=== PATIENT | male | born 1955 | race Caucasian/White ===

== ENCOUNTER 2020-09-22 09:38 | Emergency (ER) | payer BC ==
[~2020-09-22] VITALS: Ht 170.2 cm; Wt 79.3 kg
--- NOTE | 2020-09-22 10:09 | NUR ---
PT BIB POV. PER PT HE WAS COVID+ 09/12, WITH WORSENING COUGH, POOR APPETITE, AND SOB. PT AFEBRILE AND 91% O2 SAT ON RA. PT RESTING IN GURNEY, ON CARDIAC MONITORING & CONT PULSE OX, NAD NOTED, WILL CONTINUE TO MONITOR.
[2020-09-22] MEDS ORDERED: SODIUM CHLORIDE FLUSH 10ML SYR IVF ONE (10:30)
--- NOTE | 2020-09-22 10:41 | NUR ---
PT AMBULATED DOWN HALLWAY, PT'S PULSE OX AFTER EXERTION WAS 94% ON RA. PT OCCASIONALLY DESATING TO 88% WHILE RESTING IN [facility]. AWARE. PT ON CONTINUOUS PULSE OX, WILL CONTINUE TO MONITOR.
[2020-09-22 10:49] LABS: BASOPHILS % (AUTO) 0 % (0-1); EOSINOPHILS % (AUTO) 0 % (1-7); LYMPHOCYTES % (AUTO) 9 % (22-44); MEAN CORPUSCULAR HEMOGLOBIN 30.8 pg (27.5-34.5); MEAN CORPUSCULAR HGB CONC 33.9 g/dL (33.2-36.2); MEAN PLATELET VOLUME 8.4 fL (7.4-10.4); MONOCYTES % (AUTO) 6 % (2-9); NEUTROPHILS % (AUTO) 84 % (42-75); PLATELET COUNT 251 x10^3/uL (130-400); RED BLOOD COUNT 4.42 x10^6/uL (4.38-5.82); RED CELL DISTRIBUTION WIDTH 13.4 % (9.4-14.8)
[2020-09-22 10:51] LABS: MD NO
[2020-09-22 10:59] LABS: ALBUMIN 2.7 g/dL (3.4-5.0); ANION GAP 9 mmol/L (5-15); CALCIUM 8.6 mg/dL (8.5-10.1); CHLORIDE 95 mmol/L (98-107); CREATININE 1.11 mg/dL (0.7-1.3)
[2020-09-22 11:03] LABS: TROPONIN I < 0.015 ng/mL (0.000-0.045)
[2020-09-22 13:43] VITALS: BP 99/54
== END 2020-09-22 13:57 | disposition home or self-care (01) ==
LOC: ED 10:21
DX: U07.1 COVID-19 (principal); J12.9 Viral pneumonia, unspecified; R09.02 Hypoxemia; R06.00 Dyspnea, unspecified; R06.02 Shortness of breath; R05 Cough; M79.10 Myalgia, unspecified site; I10 Essential (primary) hypertension; E78.00 Pure hypercholesterolemia, unspecified
CPT/HCPCS: 36415; 71045; 80048; 82040; 84484; 85025; 93005; 99285